=== PATIENT | male | born 1950 | race Caucasian/White ===

== ENCOUNTER 2019-08-20 08:58 | Day surgery (SDC) | payer OTHER ==
[~2019-08-20] VITALS: Ht 170.2 cm; Wt 88.0 kg
[~2019-08-20 08:58] MED LIST: ASPIR-LOW81 MG PO; BACTRIM DS TAB1 EACH PO; C-500500 MG PO; CELECOXIB200 MG PO; CO Q-10100 MG PO; DIGOXIN125 MCG PO; DIGOXIN250 MCG PO; DILTIAZEM 24HR240 M3 PO; DOCUSATE SODIU100 MG PO; ELIQUIS5 MG PO; FISH OIL 1,0001 EAC2 PO; GABAPENTIN600 MG PO; GLUCOSAMINE CH1 EAC7 PO; IRON325 M1 PO; LISINOPRIL20 MG PO; METFORMIN HCL500 MG PO; OMEPRAZOLE20 MG PO; OXYCODONE HCL5 MG PO; ROSUVASTATIN CA20 MG PO; SENNA LAX8.6 MG PO; VITAMIN D31000 UNIT PO
[2019-08-20] MEDS ORDERED: HYDROCODON-ACE1 EA11 PO (13:54)
--- NOTE | 2019-08-21 08:02 | OR ---
[facility] [address], [place] [address] Signed DATE OF OPERATION: 08/20/2019 SURGEON: Juana Castrejon MD PREOPERATIVE DIAGNOSIS: Granuloma, left knee wound. POSTOPERATIVE DIAGNOSIS: Granuloma, left knee wound. PROCEDURE PERFORMED: Wound revision 2 cm. CLINIC PHYSICIAN: None. ANESTHESIA: Local with sedation. TOURNIQUET TIME: Zero. BRIEF HISTORY: Gordon is a 69-year-old gentleman, who developed wound infection that was superficial and treated with debridement, however, he did develop a little bit of proud flesh in the midportion of the wound that continued to drain. This was cauterized in the office, however, it continued to grow. Risks and benefits of excision were discussed with him and he elected to proceed. DESCRIPTION OF PROCEDURE: Once consent was obtained, he was taken to the operating room. After adequate anesthesia was placed on operating room table, all downside pressure points well padded. The leg was prepped and draped in a standard sterile fashion. About 2 cm of incision was marked out with a narrow ellipse and incised longitudinally after infiltrating the skin with 5 mL of 0.25% plain Marcaine. The ellipse was taken through the skin and the skin was elevated. There were no underlying signs of infection or areas of abscesses that were on the prior incision. The wounds were mobilized and irrigated and closed with 2-0 nylon using horizontal mattress sutures. The wound was then cleansed and dressed with Allevyn silver dressing and an OpSite. He tolerated the procedure well. All sponge, needle, Electronically Signed By: JUANA CASTREJON MD 08/21/19 0802 PATIENT NAME: GORDON JOHNSTON OPERATIVE REPORT DATE OF : 50 REPORT #: [id number] PHYSICIAN: JUANA CASTREJON MD PCP: ZAHIDA CARRENO MD REPORT IS CONFIDENTIAL AND NOT TO BE RELEASED WITHOUT AUTHORIZATION [address] [place] [address] Signed and instrument counts were correct. Juana Castrejon MD BA/MODL /[id number] Copies: ~ Electronically Signed By: JUANA CASTREJON MD 08/21/19 0802 PATIENT NAME: GORDON JOHNSTON OPERATIVE REPORT DATE OF : 50 REPORT #: [id number] PHYSICIAN: JUANA CASTREJON MD PCP: ZAHIDA CARRENO MD REPORT IS CONFIDENTIAL AND NOT TO BE RELEASED WITHOUT AUTHORIZATION
== END 2019-08-20 14:51 | disposition home or self-care (01) ==
LOC: DS 08:58 → OPS 08:58 → DS 12:30 → OPS 14:51
PROVIDERS: Specialist
PROC: 0H9LXZZ Drainage of Left Lower Leg Skin, External Approach (ICD-10-PCS; principal; 2019-08-20 12:30)
DX: L92.9 Granulomatous disorder of the skin and subcutaneous tissue, unspecified (principal); M17.32 Unilateral post-traumatic osteoarthritis, left knee; Z88.5 Allergy status to narcotic agent; Z88.8 Allergy status to other drugs, medicaments and biological substances; Z79.899 Other long term (current) drug therapy; Z79.84 Long term (current) use of oral hypoglycemic drugs
CPT/HCPCS: A9270; J1885; J2250; J2704; J3010; J3370; J7121